=== PATIENT | male | born 1985 | race Caucasian/White ===

== ENCOUNTER 2016-11-16 20:18 | Emergency (ER) | payer OTHER ==
[2016-11-16 20:22] VITALS: TEMP 37; Ht 172.7 cm
[2016-11-16 21:26] LABS: MEAN CORPUSCULAR HEMOGLOBIN 31.8 pg (25-34); MEAN CORPUSCULAR HGB CONC 34.6 g/dl (32-36); MEAN PLATELET VOLUME 11.6 fL (7.4-10.4); PLATELET COUNT 277 K/uL (130-400); WHITE BLOOD COUNT 7.24 K/uL (4.8-10.8)
--- NOTE | 2016-11-16 21:36 | DIAGNOSTIC IMAGING REPORT ---
CHEST ONE VIEW PORTABLE HISTORY: Atypical chest pain COMPARISON: Chest 03/30/2014. FINDINGS: The lungs are clear. Cardiac silhouette is normal in size. No pleural effusions. No pneumothorax. Old, healed right clavicle fracture. IMPRESSION: No acute process. Electronically signed by: Michael Ramhan M.D. 11/16/2016 9:35 PM Dictated Date/Time: 11/16/2016 9:34 PM
[2016-11-16 21:37] LABS: ALT/SGPT 24 U/L (12-78); AST/SGOT 17 U/L (15-37); BLOOD UREA NITROGEN 16 mg/dl (7-18); BUN/CREATININE RATIO 15.6 (10-20); CARBON DIOXIDE 28 mmol/L (21-32); CHLORIDE 103 mmol/L (98-107); GLUCOSE 80 mg/dl (70-99); POTASSIUM 4.5 mmol/L (3.5-5.1); SODIUM 142 mmol/L (136-145)
[2016-11-16 21:41] LABS: PROTHROMBIN TIME (PATIENT) 11.2 SECONDS (9.0-12.0)
[2016-11-16 21:42] LABS: ALB/GLOB RATIO 1.4 (0.9-2); ALKALINE PHOSPHATASE 69 U/L (45-117); CKMB/CK RATIO 0.6 (0-3.0)
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
[2016-11-16 22:54] VITALS: BP 125/73; PULSE 70; O2SAT 97
[2016-11-16 23:47] LABS: LYME DISEASE AB IGG NEG (NEG); LYME DISEASE AB IGM NEG (NEG)
== END 2016-11-16 22:54 | disposition home or self-care (01) ==
LOC: C.EDB 20:18
DX: R07.2 Precordial pain (principal); Z87.442 Personal history of urinary calculi; Z83.3 Family history of diabetes mellitus; Z82.49 Family history of ischemic heart disease and other diseases of the circulatory system

== ENCOUNTER → 2017-10-10 | Outpatient (CLI) | payer OTHER | END | disposition home or self-care (01) | LOC: C.LABBFT 12:04 | PROVIDERS: ATTEND Obstetrics & Gynecology | DX: Z13.0 Encounter for screening for diseases of the blood and blood-forming organs and certain disorders involving the immune mechanism (principal) ==

== ENCOUNTER 2018-01-09 21:44 | Emergency (ER) | payer OTHER ==
[~2018-01-09] VITALS: Ht 175.3 cm; Wt 81.6 kg
[2018-01-09 21:47] VITALS: TEMP 36.7; Ht 175.3 cm; Wt 81.6 kg
[2018-01-09] MEDS ORDERED: SODIUM CHLORIDE 0.9% 1000ML 1,000 ML IV STA (22:35)
[2018-01-09 22:44] LABS: BASO % 0.1 %; BASO ABS # 0.01 K/uL (0-0.2); EOS % 0.1 %; EOS ABS # 0.01 K/uL (0-0.5); HEMATOCRIT 46.7 % (42-52); HEMOGLOBIN 16.5 g/dL (14.0-18.0); IG# 0.04 K/uL (0.00-0.02); LYMPH % 17.1 %; LYMPH ABS # 2.21 K/uL (1.2-3.4); MEAN CELL VOLUME 89.3 fL (80-100); MEAN CORPUSCULAR HEMOGLOBIN 31.5 pg (25-34); MEAN CORPUSCULAR HGB CONC 35.3 g/dl (32-36); MEAN PLATELET VOLUME 10.9 fL (7.4-10.4); MONO % 5.3 %; MONO ABS # 0.68 K/uL (0.11-0.59); NEUT % 77.1 %; NEUT ABS # 9.95 K/uL (1.4-6.5); PLATELET COUNT 418 K/uL (130-400); RED CELL DISTRIBUTION WIDTH CV 12.8 % (11.5-14.5); RED CELL DISTRIBUTION WIDTH SD 41.7 fL (36.4-46.3)
[2018-01-09 22:50] VITALS: O2SAT 98
[2018-01-09 22:51] LABS: ALBUMIN 4.9 gm/dl (3.4-5.0); CREATININE 1.38 mg/dl (0.60-1.40); POTASSIUM 3.5 mmol/L (3.5-5.1)
[2018-01-09 22:54] LABS: TOTAL PROTEIN 8.3 gm/dl (6.4-8.2)
[2018-01-09 23:39] VITALS: BP 136/67; PULSE 71; O2SAT 98
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
== END 2018-01-09 23:43 | disposition home or self-care (01) ==
LOC: C.EDC 21:44
DX: E86.0 Dehydration (principal); T67.2XXA Heat cramp, initial encounter; X58.XXXA Exposure to other specified factors, initial encounter